=== PATIENT | female | born 1945 | race Caucasian/White ===

== ENCOUNTER 2023-11-22 12:45 | Emergency (ER) | payer OTHER, SELFPAY ==
[2023-11-22] VITALS (66 sets, daily range): BP systolic 92–181; BP diastolic 52–110; PULSE 74–128; RESP 19–48; TEMP 36.4–36.9; O2SAT 83–100
--- NOTE | ~2023-11-22 | CT_ITS ---
EXAMINATION: CTA chest PE protocol DATE: 11/22/2023 14:49 INDICATION: Respiratory distress. TECHNIQUE: Computed tomography angiography (CTA) of the chest was performed with 100 mL Omnipaque-350 intravenous contrast timed to evaluate the pulmonary arteries. Coronal maximum intensity projection 3D-reconstructions were created by the technologist. Automated exposure control and iterative reconst ruction technique were employed. The dose-length product was 767.25 mGy-cm. COMPARISON: Chest single view 11/22/2023 FINDINGS: There are dependent airspace opacities in right lung, likely atelectasis. There are small p leural effusions. There are airspace opacities with air bronchograms in left upper lobe and left lowe r lobe, consistent with pneumonia. There is smooth septal thickening in the lungs, consistent mild pu lmonary edema. Calcified left lung nodules and calcified left hilar lymph nodes are consistent with o ld granulomatous disease. Cardiomegaly is noted. There are coronary artery calcifications. No pericar dial effusion. There is no pulmonary embolus. There is mild bilateral hilar lymphadenopathy, likely r eactive. Calcifications in the spleen are consistent with old granulomatous disease. There is severe thoracic spondylosis. There is mild chronic anterior wedging of multiple vertebral bodies. IMPRESSION: 1. No pulmonary embolus. 2. Pneumonia in left upper lobe and left lower lobe. 3. Mild pulmonary edema. 4. Small pleural effusions. 5. Mild bilateral hilar lymphadenopathy, likely reactive. Reviewed, dictated and finalized at location A.
--- NOTE | ~2023-11-22 | XR_ITS ---
EXAMINATION: XR chest 1V portable DATE: 11/22/2023 13:04 INDICATION: Respiratory distress. TECHNIQUE: A single frontal view of the chest was obtained. COMPARISON: Chest 2 views 12/09/2010 FINDINGS: The patient is rotated to her right. There are airspace opacities in right lower lung zone and all left lung zones. There is a diffuse interstitial pattern in the lungs. No pleural effusion or pneumothorax. The heart size is normal. IMPRESSION: 1. Diffuse lung disease, consistent with pulmonary edema versus pneumonia. Reviewed, dictated and finalized at location A.
[2023-11-22] MEDS: SODIUM CHLORIDE 0.9% IV 1,000 ML 999 ML IV CONT ×2 (12:47→16:09)
[2023-11-22] MEDS: MAGNESIUM SULF 2 GM/WATER 50ML 2 GM/50 ML BAG IVPB (12:54)
[2023-11-22] MEDS: methylPREDNISolone SOD SUCC 125 MG VIAL IV PUSH (13:02)
--- NOTE | 2023-11-22 13:07 | ECG_ITS ---
Measurements Intervals [place] Rate: 120 P: -2 NC: 178 QRS: 51 QRSD: 100 T: 98 QT: 295 QTc: 418 Interpretive Statements SINUS TACHYCARDIA CANNOT RULE OUT SEPTAL INFARCT, AGE INDETERMINATE ATRIAL PREMATURE COMPLEXES BASELINE ARTIFACT- I, II, III, AVR, AVL, AVF, V1-V6 ABNORMAL ECG NO PREVIOUS ECG AVAILABLE FOR COMPARISON Electronically Signed On 11-22-2023 13:49:12 CDT by Paxton Silva D.O.
[2023-11-22] MEDS: IPRATROPIUM 0.5 MG/ALBUTEROL SULFATE 2.5 MG AMPUL.NEB 3 ML INHALATION (13:08)
[2023-11-22 13:20] LABS: Base Excess ABG -5.3 mmol/L (0-2); HCO3 ABG 26.5 mmol/L (23-29); Oxygen Content ABG 16.3 %vol (16.0-22.0); Oxygen Saturation ABG 91.8 % (95-97); Oxyhemoglobin 90.9 % (94-100); PO2 ABG 81.9 mmHg (75-85); Total Hemoglobin 12.7 g/dL (12.0-18.0); pH ABG 7.09 (7.35-7.45)
[2023-11-22 13:21] LABS: Device AMBU BAG; Modified Allen's Test Pass; PCO2 ABG 90.2 mmHg (35-45); Site Drawn RIGHT RADIAL
[2023-11-22] MEDS: MORPHINE SULFATE (*CRX) 2 MG/ML INJ IV PUSH (13:21)
[2023-11-22] MEDS: LORazepam INJ (*CRX) 2 MG/ML VIAL 0.5 MG IV PUSH (13:23)
[2023-11-22 13:26] LABS: Hematocrit 37.6 % (35.0-42.0); Immature Platelet Fraction Pct 8.2 % (1.0-7.0); Mean Corpuscular HGB Conc 31.9 g/dL (32-36); Mean Corpuscular Hemoglobin 27.1 pg (27.0-31.0); Mean Corpuscular Volume 85.1 fL (78.0-102.0); Mean Platelet Volume 10.8 fl (9.2-11.8); Platelet Count Result 1400 K/mm3 (150-420); Red Blood Count 4.42 M/mm3 (4.20-5.40); Red Cell Distribution Width 18.8 % (11.6-14.4); White Blood Count 17.7 K/mm3 (4.8-10.8)
[2023-11-22 13:33] LABS: Appearance Urine Clear (Clear); Bilirubin Urine Negative (Negative); Blood Urine Trace-intact (Negative); Color Urine Yellow (Yellow); Glucose Urine UA Negative (Negative); Ketones Urine Negative (Negative); Leukocyte Esterase Ur Negative LEU/UL (Negative); Nitrate Urine Negative (Negative); Protein Urine 3+ (Negative); Specific Grav Ur 1.025 (1.010-1.020)
[2023-11-22 13:36] LABS: Lactic Acid Reflex 1.6 mmol/L (0.4-2.0)
[2023-11-22 13:40] LABS: INR 1.2; Prothrombin Time 12.6 Seconds (9.50-12.1)
[2023-11-22 13:41] LABS: D Dimer 0.73 mg/L (0.19-0.50)
[2023-11-22 13:42] LABS: Alanine Aminotransferase 42 U/L (14-59); Alkaline Phosphatase 89 U/L (46-116); Amphetamine Screen Urine Negative (Negative); Anion Gap 7 mmol/L (8-16); Aspartate Amino Transferase 19 U/L (15-37); Barbiturate Screen Urine Negative (Negative); Benzodiazepines Screen Urine Negative (Negative); Bilirubin,Total 1.1 mg/dL (0.00-1.00); Blood Urea Nitrogen 16 mg/dL (7-18); Calcium 8.6 mg/dL (8.5-10.1); Cannabinoid Screen Urine Negative (Negative); Carbon Dioxide 31 mmol/L (21-32); Chloride 102 mmol/L (98-108); Cocaine Screen Urine Negative (Negative); Estimated Glomerular Filt Rate 43; Glucose 237 mg/dL (70-99); Magnesium 1.7 mg/dL (1.8-2.4); Methadone Screen Urine Negative (Negative); NT Pro B Type Natriuretic Pept 5148 pg/mL (0-450); Opiate Screen Urine Negative (Negative); Osmolality Calculated 299 mOsm/kg (285-295); Phencyclidine Screen Urine Negative (Negative); Potassium 4.4 mmol/L (3.5-5.1); Sodium 140 mmol/L (136-145); Total Protein 7.4 g/dL (6.4-8.2)
[2023-11-22 13:44] LABS: Partial Thromboplastin Time 29.8 SEC (22.3-31.6); Troponin I 26.4 ng/L (0.00-60.4)
[2023-11-22 13:51] LABS: Add Urine Microscopic? YES; RBC Urine None seen /hpf (0-2); WBC Urine None seen /hpf (0-3)
[2023-11-22 13:52] LABS: Bacteria Urine Trace /hpf; Band Neutrophils Percent 0 % (0-6); Lymphocytes Absolute Manual 1.77 K/mm3 (1.1-4.5); Lymphocytes Percent Manual 10 % (18-44); Neutrophils Absolute Manual 12.39 K/mm3 (1.7-7.2); Neutrophils Percent Manual 70 % (46-73); Squamous Epithelial Cell Urine Occasional /hpf (Few); Total Cells Counted 100
[2023-11-22 13:53] LABS: Basophils Absolute Manual 0.53 K/mm3 (0-0.1); Basophils Percent Manual 3 % (0-1); Eosinophils Absolute Manual 1.59 K/mm3 (0.02-0.50); Eosinophils Percent Manual 9 % (1-6); Monocytes Absolute Manual 1.41 K/mm3 (0.1-0.90); Monocytes Percent Manual 8 % (3-9); Platelet Estimate Increased (Adequate)
[2023-11-22 14:12] LABS: SARS-CoV-2 RNA PCR Negative (Negative)
[2023-11-22 14:13] LABS: Influenza A QL RT-PCR Negative (Negative); Influenza B QL RT-PCR Negative (Negative); RSV RNA, RT-PCR Negative (Negative)
--- NOTE | 2023-11-22 14:38 | PC.NURSE ---
1430 - pt remains lethargic and without speaking. resp sl labored with bi-pap in place, st noted on the monitor. pulse ox 889-90, family requesting pt be transfered to a [facility] for continued care.
[2023-11-22] MEDS: AZITHROMYCIN 500 MG/NS 250 ML 500 MG/250 ML BAG 250 MG IVPB (14:51)
[2023-11-22 15:01] LABS: Base Excess ABG -4.3 mmol/L (0-2); HCO3 ABG 24.3 mmol/L (23-29); Oxygen Content ABG 15.3 %vol (16.0-22.0); Oxygen Saturation ABG 93.1 % (95-97); Oxyhemoglobin 92.6 % (94-100); PCO2 ABG 62.3 mmHg (35-45); PO2 ABG 77.6 mmHg (75-85); Total Hemoglobin 11.7 g/dL (12.0-18.0); pH ABG 7.21 (7.35-7.45)
[2023-11-22 15:03] LABS: Device BIPAP; Modified Allen's Test Pass; Site Drawn LEFT RADIAL
[2023-11-22 15:06] LABS: Expiratory Pressure 6 cmH2O; Inspiratory Pressure 16 cmH2O
--- NOTE | 2023-11-22 15:29 | ED.SOB ---
HPI - SOB/Dyspnea General Chief Complaint: Shortness of Breath/Dyspnea Stated Complaint: AMBULANCE Source: patient and EMS Mode of arrival: EMS Limitations: physical limitation and clinical condition History of Present Illness HPI Narrative: this is an 78-year-old female recently discharged from hospital in [place] presents with respiratory distress brought in by EMS the patient was being bagged O2 sats initially in the 60s, patient with history of COPD and patient did receive a nebulizer treatment in route to the emergency department, the patient received another breathing treatment along with some Solu-Medrol patient placed on a non-rebreather in sats did improve. The patient subsequently improved on a BiPAP. Spoke with family that expressed the patient and their wishes that the patient does not want to be intubated with no CPR. Vitals are stable blood pressure 148/91 initially heart rate was 125 respiratory rate initially of 40 afebrile. MD elicited complaint: shortness of breath Pertinent past history: COPD Onset (ago): hour(s) Context: recent illness Severity: severe Known history of: COPD Related Data Allergies Allergy/AdvReac Type Severity Reaction Status Date / Time codeine Allergy Unknown Unknown Verified 11/22/23 13:31 morphine Allergy Unknown Unknown Verified 11/22/23 13:31 Review of Systems Review of Systems: All systems reviewed & are unremarkable except as noted in HPI and below PMFSH Past Medical History Medical History COPD (chronic obstructive pulmonary disease) Family History Family History Father Family history of throat cancer Social History Social History Alcohol intake: never Exam Const: General: ill appearing Nutritional Appearance: obese Limitations: altered mental status and physical limitations Eyes: Conjunctivae: conjunctivae normal Neck: Neck: normal visual inspection, no lymphadenopathy and no meningeal signs Chest: Chest palpation & inspection: normal inspection of the chest Resp: Effort & Inspection: labored, retractions, tachypneic and uses accessory muscles Auscultation: breath sounds absent and diminished lung sounds Cardio: Rate: regular rate Rhythm: regular rhythm GI: GI Palp: Yes Soft to palpation Auscultation: normal bowel sounds Urinary Catheter: Urinary Catheter: patent and draining Skin: General skin exam: normal color Rashes: no rashes Neuro: General: moves all extremities and no focal motor deficits Extrem: General: normal to inspection Course Course Emergency Course: patient with respiratory distress secondary to COPD had nebulizer treatment was started on a non-rebreather have blood gases which showed metabolic acidosis with primary respiratory acidosis with gases of 7.09/CO2 of 90/ pH CO3 of 26.5. Patient also received Solu-Medrol 125 IV along with magnesium g IV. Patient was placed on a BiPAP and is currently satting at 100% BiPAP at 16/6 with FiO2 of 70 with oxygen at15L. Patient had an elevated BNP of 5000 through 48 with an elevated D-dimer of 0.73, had a CTA performed which showed mild pulmonary edema with no pulmonary embolism does show pneumonia of the left upper and lower lung canales and was started on ceftriaxone along with azithromycin. Discussed DNR status with family and stated the patient's wishes are do not resuscitate with no intubation no CPR. Patient also received a dose of IV morphine and Ativan and is breathing much easier. 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 Vital Signs Vital signs: Vital Signs Pulse Rate 125 H 11/22/23 12:45 Respiratory Rate 40 H 11/22/23 12:45 Pulse Oximetry 97 11/22/23 12:45 Oxygen Delivery Mechanical Ventilation 11/22/23 12:45 Oxygen Flow Rate 15 11/22/23 12:45 Temp
[2023-11-22] MEDS: ONDANSETRON INJ 4 MG/2 ML VIAL IV PUSH (17:48)
--- NOTE | 2023-11-28 13:24 | PC.NURSE ---
blood culture reviewed, noted no growth after 5 days.
== END 2023-11-22 18:40 | disposition short-term general hospital (02) ==
PROVIDERS: Emergency Provider Emergency Medicine; PCP Internal Medicine
DX: J44.9 Chronic obstructive pulmonary disease, unspecified (principal); J18.9 Pneumonia, unspecified organism
CPT/HCPCS: 36415; 36600; 71045; 71275; 80053; 80307; 81001; 82805; 83605; 83735; 83880; 84484; 85025; 85055; 85380; 85610; 85730; 87040; 87637; 93005; 96361; 96365; 96366; 96367; 96375; 99285; J0456; J0696; J2060; J2270; J2405; J2930; J3475; J7030; Q9967

== ENCOUNTER 2024-02-21 22:07 | Emergency (ER) | payer OTHER, SELFPAY ==
[2024-02-21] VITALS (10 sets, daily range): BP systolic 135–174; BP diastolic 92–107; PULSE 66–128; RESP 20–26; TEMP 36.6; O2SAT 94–98
--- NOTE | ~2024-02-21 | CT_ITS ---
Non-contrast Head CT History: Weakness Technique: Axial non-contrast imaging of the brain was performed. Dose reduction technique was used on this scan by utilizing automated exposure control and iterative reconstruction technique. The dose -length product (DLP) was 605.33 mGy-cm. Findings: There is acute parenchymal hematoma in the left occipital lobe measuring 3.0 x 2.4 cm in si ze, with extension of acute hemorrhage into the left lateral ventricle. There is a densely calcified or ossified osteoma versus meningioma at the superior frontal region, measuring 10 mm in diameter. Th e ventricles and subarachnoid spaces are normal in size. The calvarium appears normal. The visualiz ed paranasal sinuses and mastoid air cells are clear. Impression: 3.0 x 2.4 cm acute parenchymal hemorrhage in the left occipital lobe with extension of acute hemorrha ge into the left lateral ventricle. Reviewed, dictated and finalized at [facility]. Impression: 3.0 x 2.4 cm acute parenchymal hemorrhage in the left occipital lobe with exten aleksandr of acute hemorrhage into the left lateral ventricle.
--- NOTE | ~2024-02-21 | XR_ITS ---
XR chest 1V portable Ordering provider: Danial Parson MD History: 78 years Female with . dyspnea/HX OF COPD . Comparison: November 22, 2023 FINDINGS: MEDIASTINUM: The cardiac silhouette is slightly enlarged. Congestive loreto. LUNGS: No pneumothorax. Right pleural effusion with adjacent atelectasis versus pneumonia is noted. OTHER: No free air under the diaphragm. IMPRESSION: Right basilar atelectasis versus pneumonia with mild pleural effusion. Reviewed, dictated and finalized at location A.
--- NOTE | 2024-02-21 22:24 | ED.SOB ---
HPI - SOB/Dyspnea General Chief Complaint: Shortness of Breath/Dyspnea Stated Complaint: altered mental status Time Seen by Provider: 02/21/24 22:13 Source: patient, family and EMS Mode of arrival: EMS Limitations: physical limitation History of Present Illness HPI Narrative: this is a 78 year female presents from [facility] living, found in her room without her oxygen and she had desatted, with some confusion. Otherwise during assessment patient is doing well appears to be back to her baseline with no acute distress no shortness of breath does have a mild cough nonproductive with no dysuria no fever chills no nausea vomiting no abdominal pain no chest pain. MD elicited complaint: shortness of breath Pertinent past history: COPD Related Data Home Medications Medication Instructions Recorded Confirmed acetaminophen 500 mg tablet 1,000 mg PO Q6H PRN Pain 02/21/24 02/21/24 albuterol sulfate 2.5 mg/3 mL 2.5 mg continuous nebulization PRN 02/21/24 02/21/24 (0.083 %) solution for nebulization PRN Shortness Of Breath albuterol sulfate 90 mcg/actuation 1 puff inhalation PRN PRN 02/21/24 02/21/24 aerosol inhaler Shortness Of Breath apixaban 5 mg tablet (Eliquis) 5 mg PO BID 02/21/24 02/21/24 aspirin 81 mg capsule 81 mg PO DAILY 02/21/24 02/21/24 buspirone 15 mg tablet 15 mg PO BID 02/21/24 02/21/24 cholecalciferol (vitamin D3) 125 125 mcg PO DAILY 02/21/24 02/21/24 mcg (5,000 unit) tablet (Vitamin D3) ferrous sulfate 325 mg (65 mg 325 mg PO DAILY 02/21/24 02/21/24 iron) tablet (FeroSul) fluticasone fur. 100 mcg-umeclid 1 inh inhalation DAILY 02/21/24 02/21/24 62.5 mcg-vilant 25 mcg inhalat.powder (Trelegy Ellipta) furosemide 20 mg tablet 20 mg PO DAILY 02/21/24 02/21/24 levothyroxine 125 mcg tablet 125 mcg PO DAILY 02/21/24 02/21/24 lovastatin 20 mg tablet 20 mg PO HS 02/21/24 02/21/24 metoprolol tartrate 25 mg tablet 25 mg PO BID 02/21/24 02/21/24 multivit with minerals-iron 18 1 tablet PO DAILY 02/21/24 02/21/24 mg-folic ac 400 mcg-vit K 25 mcg tablet (Adults Multivitamin) sennosides 8.6 mg-docusate sodium 2 tab-cap PO DAILY 02/21/24 02/21/24 50 mg tablet Allergies Allergy/AdvReac Type Severity Reaction Status Date / Time codeine Allergy Unknown Unknown Verified 11/22/23 13:31 morphine Allergy Unknown Unknown Verified 11/22/23 13:31 Review of Systems Review of Systems: All systems reviewed & are unremarkable except as noted in HPI and below PMFSH Past Medical History Medical History COPD (chronic obstructive pulmonary disease) Family History Family History Father Family history of throat cancer Social History Social History Alcohol intake: never Exam Const: General: healthy appearing and no acute distress Nutritional Appearance: well nourished Orientation/consciousness: patient oriented x3 Limitations: no limitations HENMT: Head: normal to inspection Eyes: Conjunctivae: conjunctivae normal Neck: Neck: normal visual inspection, no lymphadenopathy and no meningeal signs Chest: Chest palpation & inspection: normal inspection of the chest Resp: Effort & Inspection: normal respiratory effort Auscultation: diminished lung sounds Cardio: Rate: regular rate Rhythm: regular rhythm GI: GI Palp: Yes Soft to palpation Auscultation: normal bowel sounds : General: Yes bladder normal to palpation Urinary Catheter: Urinary Catheter: patent and draining Back/Spine/Pelvis: Back: no CVA tenderness Skin: General skin exam: normal color Rashes: no rashes Wounds: no wounds Neuro: General: moves all extremities, no meningeal signs and no focal motor deficits Extrem: General: normal to inspection, no clubbing, cyanosis or edema and no pedal edema Psych: Affect: normal affect Attitude: cooperative Course C
[2024-02-21 22:38] LABS: Basophils Absolute Auto 0.18 K/mm3 (0.00-0.10); Basophils Percent Auto 2.8 % (0.0-1.0); Eosinophils Absolute Auto 0.06 K/mm3 (0.02-0.50); Eosinophils Percent Auto 0.9 % (1.0-6.0); Hematocrit 42.9 % (35.0-42.0); Hemoglobin 14.3 g/dL (11.7-13.8); Immature Granulocyte Absolute 0.02 K/mm3 (0.00-0.00); Immature Granulocyte Percent A 0.3 % (0.0-0.0); Lymphocytes Absolute Auto 1.65 K/mm3 (1.10-4.50); Lymphocytes Percent Auto 25.7 % (18.0-42.0); Mean Corpuscular HGB Conc 33.3 g/dL (32-36); Mean Corpuscular Hemoglobin 27.9 pg (27.0-31.0); Mean Corpuscular Volume 83.8 fL (78.0-102.0); Mean Platelet Volume 9.4 fl (9.2-11.8); Monocytes Absolute Auto 0.45 K/mm3 (0.10-0.90); Neutrophils Absolute Auto 4.07 K/mm3 (1.70-7.20); Neutrophils Percent Auto 63.3 % (50.0-70.0); Platelet Count Result 350 K/mm3 (150-420); Red Blood Count 5.12 M/mm3 (4.20-5.40); Red Cell Distribution Width 21.6 % (11.6-14.4); White Blood Count 6.4 K/mm3 (4.8-10.8)
[2024-02-21 22:53] LABS: INR 1.1; Partial Thromboplastin Time 27.3 Sec (23.9-30.70); Prothrombin Time 11.6 Seconds (9.50-12.1)
[2024-02-21] MEDS: methylPREDNISolone SOD SUCC 125 MG VIAL IV PUSH (22:54)
[2024-02-21 22:55] LABS: Alanine Aminotransferase 10 U/L (14-59); Albumin Level 3.2 g/dL (3.4-5.0); Alkaline Phosphatase 59 U/L (46-116); Aspartate Amino Transferase 21 U/L (15-37); Bilirubin,Total 1.4 mg/dL (0.00-1.00); Blood Urea Nitrogen 15 mg/dL (7-18); Calcium 8.9 mg/dL (8.5-10.1); Carbon Dioxide 31 mmol/L (21-32); Estimated CRCL calculation 33 ml/min; Estimated Glomerular Filt Rate 43; Glucose 125 mg/dL (70-99); Total Protein 6.8 g/dL (6.4-8.2)
[2024-02-21] MEDS: IPRATROPIUM 0.5 MG/ALBUTEROL SULFATE 2.5 MG AMPUL.NEB 3 ML INHALATION (22:56)
[2024-02-21] MEDS: ONDANSETRON INJ 4 MG/2 ML VIAL IV PUSH (22:58)
[2024-02-21 22:59] LABS: Anion Gap 11 mmol/L (4-12); Chloride 100 mmol/L (98-108); Osmolality Calculated 295 mOsm/kg (285-295); Potassium 2.8 mmol/L (3.5-5.1); Sodium 142 mmol/L (136-145)
[2024-02-21 22:59] LABS: Appearance Urine Sl Cloudy (Clear); Bilirubin Urine 2+ (Negative); Blood Urine 2+ (Negative); Color Urine Dark Yellow (Yellow); Glucose Urine UA Trace (Negative); Ketones Urine Trace (Negative); Leukocyte Esterase Ur Trace LEU/UL (Negative); Nitrate Urine Negative (Negative); Protein Urine 3+ (Negative)
[2024-02-21 23:06] LABS: Add Urine Microscopic? YES; Amorphous Sediment Urine Few; Bacteria Urine 4+ /hpf; Hyaline Casts Urine 0-2 /lpf; Squamous Epithelial Cell Urine Rare /hpf (Few)
[2024-02-21 23:07] LABS: Transitional Epi Cells Urine Rare /hpf
[2024-02-21] MEDS: KCL 20 MEQ/SW 100 ML 100 ML 50 MEQ IVPB (23:11)
[2024-02-21] MEDS: SODIUM CHLORIDE 0.9% IV 500 ML 999 ML IV CONT (23:14)
--- NOTE | 2024-02-21 23:15 | ECG_ITS ---
Test Date: 2024-02-23 02:14:09 Measurements Intervals [place] Rate: 162 P: 0 PA: 0 QRS: -37 QRSD: 90 T: 85 QT: 279 QTc: 458 Interpretive Statements ATRIAL FIBRILLATION /FLUTTER WITH RAPID VENTRICULAR RESPONSE LEFT AXIS DEVIATION [QRS AXIS < -30] NONSPECIFIC ST AND T-WAVE ABNORMALITY LEFT AXIS DEVIATION ABNORMAL ECG Electronically Signed On 02-25-2024 11:27:16 CDT by Ra Butcher M.D.
[2024-02-21 23:26] LABS: Influenza A QL RT-PCR Negative (Negative); Influenza B QL RT-PCR Negative (Negative); RSV RNA, RT-PCR Negative (Negative); SARS-CoV-2 RNA PCR Negative (Negative)
[2024-02-21 23:26] LABS: NT Pro B Type Natriuretic Pept 5808 pg/mL (0-450)
[2024-02-21] MEDS: dilTIAZem HCl INJ 25 MG/5 ML VIAL 5 MG IV PUSH ×2 (23:42→23:52)
--- NOTE | 2024-02-21 23:45 | PC.NURSE ---
Pt started having large amts of bile colored emesis after Dr Parson placed orders for obs admit. Discussed w/ family about possiblilty for transfer due to pts. Afib c RVR and rate of 130/s. 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
[2024-02-21] MEDS: AZITHROMYCIN 500 MG/NS 250 ML 500 MG/250 ML BAG 250 MG IVPB (23:58)
[2024-02-22 00:23] LABS: Troponin I 29.6 ng/L (0.00-60.4)
--- NOTE | 2024-02-22 00:30 | PC.NURSE ---
Pt remains alert x1-2 and becomes confused easily. She is anxious at times and asks numerous questions. Family at bedside trying to help pt relax. BP elevated, cardizem gtt to be started.
[2024-02-22 00:43] VITALS: BP 158/82; PULSE 108
[2024-02-22] MEDS: dilTIAZem 100 MG/100 ML 100 MG/100 ML BAG IV CONT (00:43)
[2024-02-22] MEDS: SODIUM CHLORIDE 0.9% IV 1,000 ML 100 ML IV CONT (00:49)
[2024-02-22 02:22] VITALS: BP 120/68; PULSE 106; RESP 20; O2SAT 95
--- NOTE | 2024-02-22 02:36 | PC.NURSE ---
Pt has been accepted at [facility] w/ a neurosurgeon consult accept by Dr Kolb and hospitalist accepting for transfer. Pts. family informed on acceptance and awaiting bed assignement. Pt remains alert and talking c family at bedside. VSS, cardizem gtt continues to infuse and monitor shows Afib w/ HR of 105.
[2024-02-22 02:57] VITALS: BP 109/71; PULSE 102; RESP 22; O2SAT 96
--- NOTE | 2024-02-22 03:14 | PC.NURSE ---
Call back from Mae, w/ connect at [facility], report given and will call back w/ room assignment for transfer. Pt resting, no changes, monitor shows Afib w/ HR of 80 at this time. Pt sleeping and resting comfortably.
[2024-02-22 03:46] VITALS: BP 130/76; PULSE 105; RESP 20; TEMP 36.7; O2SAT 96
--- NOTE | 2024-02-23 00:30 | ECG_ITS ---
Test Date: 2024-02-21 23:27:58 Measurements Intervals [place] Rate: 127 P: 0 [place]: 0 QRS: 7 QRSD: 93 T: 120 QT: 244 QTc: 355 Interpretive Statements ATRIAL Flutter WITH RAPID VENTRICULAR RESPONSE WITH ABERRANT CONDUCTION OR VENTRICULAR PREMATURE COMPLEXES LEFT VENTRICULAR HYPERTROPHY AND ST-T CHANGE [VOLTAGE CRITERIA PLUS ST/T ABNORMALITY] Abnormal ECG No previous ECG available for comparison Electronically Signed On 02-25-2024 11:24:52 CDT by Ra Butcher M.D.
--- NOTE | 2024-02-28 12:40 | PCDIET ---
final blood cultures x2 reviewed. no growth after 5 days. no change in plan of care
== END 2024-02-22 03:46 | disposition short-term general hospital (02) ==
PROVIDERS: Emergency Provider Emergency Medicine; PCP Internal Medicine
DX: N39.0 Urinary tract infection, site not specified (principal); E87.6 Hypokalemia; J18.9 Pneumonia, unspecified organism; I48.91 Unspecified atrial fibrillation; Z79.899 Other long term (current) drug therapy; Z79.01 Long term (current) use of anticoagulants; Z79.82 Long term (current) use of aspirin; Z20.822 Contact with and (suspected) exposure to COVID-19
CPT/HCPCS: 36415; 70450; 71045; 80053; 81001; 83880; 84484; 85025; 85610; 85730; 87040; 87637; 93005; 94640; 96365; 96366; 96367; 96375; 96376; 99285; A9270; J0456; J0696; J2405; J2919; J3480; J7030; J7040